=== PATIENT | female | born 1955 | race Hispanic/Latino ===

== ENCOUNTER → 2019-10-19 | Day surgery (SDC) | payer BC, OTHER ==
[2019-10-14 09:48] LABS: BASOPHILS % 0.4 % (0.0-1.0); EOSINOPHILS # (AUTO) 0.3 (0.0-0.4); HEMATOCRIT 38.5 % (34.2-44.1); HEMOGLOBIN 12.4 g/dL (12.0-16.0); MEAN CORPUSCULAR HEMOGLOBIN 28.2 pg (28-32); MEAN CORPUSCULAR HGB CONC 32.2 g/dL (31-35); MEAN CORPUSCULAR VOLUME 87.7 fL (81-99); MONOCYTES # (AUTO) 0.6 (0.2-0.8); MONOCYTES % 7.8 % (4.4-11.3); NEUTROPHILS # (AUTO) 4.3 (2.1-6.9); NEUTROPHILS % 52.4 % (38.7-80.0); PLATELET COUNT 277 x10e3/uL (140-360); RED BLOOD COUNT 4.39 x10e6/uL (3.6-5.1); RED CELL DISTRIBUTION WIDTH 13.8 % (11.7-14.4)
--- NOTE | 2019-10-14 09:54 | Diagnostic Imaging Report ---
EXAMINATION: CHEST 2 VIEWS INDICATION: Pre-operative COMPARISON: None FINDINGS: LINES/TUBES:None LUNGS:The lungs are well-inflated. No focal consolidation or pulmonary edema. PLEURA:No pleural effusion or pneumothorax. MEDIASTINUM:The cardiomediastinal silhouette appears normal in size and shape. BONES/SOFT TISSUES:No acute osseous injury. ABDOMEN:No free air under the diaphragm. IMPRESSION: No focal pneumonia or pulmonary edema. Signed by: Noah Jimenez MD on 10/14/2019 9:51 AM
[~2019-10-19] MED LIST: CEFAZOLIN SOD 1 GM VIAL ONE; EPHEDRINE SULFATE INJ 50 MG/ML VIAL ONE; EPINEPHRINE 1 MG/ML 30ML VIAL ONE; GLYCOPYRROLATE INJ 0.2 MG/ML VIAL ONE; KETOROLAC TROMETHAMINE 30 MG/ML VIAL ONE; LIDOCAINE HCL 2% LOCAL INJ 5 ML SDV VIAL INJ ONE; NEOSTIGMINE 1 MG/ML 10ML VIAL ONE; ONDANSETRON HCL INJ 2MG/ML 2ML 2 MG/ML VIAL ONE; PHENYLEPHRINE HCL 1% 10 MG/ML VIAL ONE; PRAVACHOL20 MG PO; PROPOFOL IV EMULSION 10 MG/ML 20 ML VIAL ONE; ROCURONIUM BROMIDE 10 MG/ML 5ML VIAL IV ONE; SEVOFLURANE INHAL SOLN 250 ML PEN BTL ONE
[2019-10-19 11:35] VITALS: BP 125/78
--- NOTE | 2019-10-19 11:48 | Operative Report ---
DATE OF PROCEDURE: 10/19/2019 SURGEON: Edvin Lacy MD SENIOR LIBRARIAN: Manjinder Mcmahon, certified PA. PREOPERATIVE DIAGNOSIS: Left shoulder rotator cuff tear. POSTOPERATIVE DIAGNOSIS: Left shoulder rotator cuff tear. PROCEDURES: Left shoulder arthroscopy, biceps tendon release, subacromial decompression and rotator cuff repair. INDICATIONS: The patient is a 64-year-old lady, who has clinic signs and symptoms consistent with a full-thickness rotator cuff tear in her left shoulder. She has failed conservative management and would like to proceed with definitive surgical repair. The risks and benefits have been discussed. The lengthy recovery has been explained. She is familiar and she has been through a right shoulder rotator cuff repair. All of her questions have been answered. She states she understands and wishes to proceed. PROCEDURE IN DETAIL: The patient was brought to the operating room and placed under general anesthetic. She received prophylactic antibiotics and a regional block in the holding area. She was positioned in the beach chair position on the shoulder table. Her left upper extremity was prepped and draped in a sterile manner. A preoperative time-out was performed. A standard posterior arthroscopy portal was established. The shoulder was insufflated with sterile saline and systematically inspected. Extensive fraying of the biceps tendon was noted. A full-thickness tear of the rotator cuff was noted. A lateral working portal was established. A 4.5 mm electric blade shaver was introduced into the shoulder joint. The fraying of the biceps tendon was debrided and the tendon was inspected. There was extensive fraying of the tendon. We elected to release this completely. Biting forceps were introduced into the shoulder joint and the biceps tendon was completely transected. The remnant was gently debrided with the shaver. The glenohumeral surfaces were inspected and noted to be well preserved. The labrum showed some degenerative changes but was otherwise stable. The articular surface of the rotator cuff tear was debrided back to healthy tissue. The scope was then placed into the subacromial space. A subacromial bursectomy and bone decompression were performed. The bursal surface of the rotator cuff was also debrided back to healthy tissue. The greater tuberosity was gently decorticated. An [employer] SpeedBridge rotator cuff repair system was opened. Two commercial pilot holes were placed at the articular margin. A bioabsorbable suture anchors preloaded with FiberTape stitches were seated into the bone. An [employer] Scorpion Suture Passer was then used to pass the FiberTape stitches through the rotator cuff. An anterior shuttle portal was necessary. The FiberTape stitches were then attached to a secondary bioabsorbable suture anchor. A stitch from the posterior anchor was combined with a stitch from the anterior anchor. This was seated down to the superior lateral cortex of the humerus. The FiberTape stitches were gently tensioned and the anchor was seated. This was done for all four stitches. The rotator cuff repair was inspected. There was nice opposition of the tendon onto the greater tuberosity with presybeterian of the footprint. This was probed and noted to be under good tension. Photographs were taken throughout the case. The arthroscopic instruments were then removed. The portal incisions were closed with nylon stitches. A sterile bandage and an UltraSling were applied. Estimated blood loss was less than 10 mL. All needle and sponge counts were correct. Edvin Lacy MD DR/LENIN /[id number]
== END | disposition home or self-care (01) ==
LOC: OR 07:33
PROVIDERS: ATTEND Specialist
DX: S46.022A Laceration of muscle(s) and tendon(s) of the rotator cuff of left shoulder, initial encounter (principal); M06.9 Rheumatoid arthritis, unspecified; E78.5 Hyperlipidemia, unspecified; K21.9 Gastro-esophageal reflux disease without esophagitis; X58.XXXA Exposure to other specified factors, initial encounter; Z88.1 Allergy status to other antibiotic agents; Z01.810 Encounter for preprocedural cardiovascular examination; Z01.812 Encounter for preprocedural laboratory examination; Z01.818 Encounter for other preprocedural examination; Z11.59 Encounter for screening for other viral diseases
CPT/HCPCS: 29827; 36415; 71046; 85025; 93005; C1713; J0690; J1885; J2001; J2370; J2405; J2704; J2710; U0002

== ENCOUNTER → 2019-12-22 | Outpatient (RCR) | payer BC ==
[~2019-12-22] MED LIST changes: -CEFAZOLIN SOD 1 GM VIAL ONE; -EPHEDRINE SULFATE INJ 50 MG/ML VIAL ONE; -EPINEPHRINE 1 MG/ML 30ML VIAL ONE; -GLYCOPYRROLATE INJ 0.2 MG/ML VIAL ONE; -KETOROLAC TROMETHAMINE 30 MG/ML VIAL ONE; -LIDOCAINE HCL 2% LOCAL INJ 5 ML SDV VIAL INJ ONE; -NEOSTIGMINE 1 MG/ML 10ML VIAL ONE; -ONDANSETRON HCL INJ 2MG/ML 2ML 2 MG/ML VIAL ONE; -PHENYLEPHRINE HCL 1% 10 MG/ML VIAL ONE; -PROPOFOL IV EMULSION 10 MG/ML 20 ML VIAL ONE; -ROCURONIUM BROMIDE 10 MG/ML 5ML VIAL IV ONE; -SEVOFLURANE INHAL SOLN 250 ML PEN BTL ONE
== END ==
LOC: PT 12-02 08:13
PROVIDERS: ATTEND Specialist
DX: S46.022D Laceration of muscle(s) and tendon(s) of the rotator cuff of left shoulder, subsequent encounter (principal); Z47.89 Encounter for other orthopedic aftercare; M25.512 Pain in left shoulder; M62.81 Muscle weakness (generalized); M25.612 Stiffness of left shoulder, not elsewhere classified

== ENCOUNTER 2020-01-19 16:00 | Outpatient (RCR) | payer BC | END 2020-01-22 | LOC: PT 16:00 | PROVIDERS: ATTEND Specialist | DX: S46.021D Laceration of muscle(s) and tendon(s) of the rotator cuff of right shoulder, subsequent encounter (principal); Z47.89 Encounter for other orthopedic aftercare; M25.512 Pain in left shoulder; M62.81 Muscle weakness (generalized); M25.612 Stiffness of left shoulder, not elsewhere classified | CPT/HCPCS: 97139 ==

== ENCOUNTER 2020-02-09 15:00 | Outpatient (RCR) | payer BC | END 2020-02-21 | LOC: PT 15:00 | PROVIDERS: ATTEND Specialist | DX: S46.022D Laceration of muscle(s) and tendon(s) of the rotator cuff of left shoulder, subsequent encounter (principal); Z47.89 Encounter for other orthopedic aftercare; M25.512 Pain in left shoulder; M25.612 Stiffness of left shoulder, not elsewhere classified; M62.81 Muscle weakness (generalized) | CPT/HCPCS: 97139 ==